=== PATIENT | male | born 1975 | race Caucasian/White ===

== ENCOUNTER → 2018-06-10 | Outpatient (CLI) | payer SELFPAY ==
--- NOTE | 2018-06-10 15:26 | RAD ---
Right lower extremity venous duplex study 06/10/2018 3:23 PM Clinical History: RT CALF PAIN Technique: Using a combination of real time ultrasound imaging and color-flow and pulse Doppler imaging techniques, including spectral analysis, graded compression and augmentation, duplex evaluation of the deep venous system of the right lower extremity was performed. Multiple images were obtained. Findings: There is no sonographic evidence of deep venous thrombosis involving the visualized deep venous structures of the right lower extremity. Popliteal fossa cyst noted measuring 2.6 x 1.0 x 2.8 cm. Impression: No evidence of deep venous thrombosis involving the right lower extremity Electronically signed by: Duc Chaudhari MD (06/10/2018 3:23 PM) [id number]
== END | disposition home or self-care (01) ==
LOC: US 13:40
PROVIDERS: ATTEND Registered Nurse
DX: M71.21 Synovial cyst of popliteal space [Baker], right knee (principal)
CPT/HCPCS: 93971

== ENCOUNTER → 2018-06-10 | Outpatient (CLI) | payer SELFPAY ==
--- NOTE | 2018-06-10 16:32 | RAD ---
EXAM: Right tibia and fibula, 2 views; right knee, 3 views. HISTORY: Pain. COMPARISON: None. FINDINGS: 2 views of the right tibia and fibula and 3 views of the right knee are obtained. There is no fracture, dislocation or subluxation. There is benign sclerosis within the distal femoral metadiaphysis. There is no suspicious lytic or sclerotic osseous lesion. There is no periosteal reaction. There is a moderate right knee effusion. IMPRESSION: 1. Moderate right knee effusion. 2. No acute osseous finding. Electronically signed by: Nadia Milligan MD (06/10/2018 4:29 PM) [place] [id number]
== END | disposition home or self-care (01) ==
LOC: RAD 16:03
PROVIDERS: ATTEND Family Medicine
DX: M25.461 Effusion, right knee (principal)
CPT/HCPCS: 73562; 73590